=== PATIENT | female | born 1945 | race Caucasian/White ===

== ENCOUNTER 2022-02-23 13:24 | Emergency (ER) | payer OTHER, MEDICAID ==
[~2022-02-23] VITALS: Ht 160 cm; Wt 72.6 kg
[2022-02-23 13:50] VITALS: BP_SYST 102
[2022-02-23] MEDS ORDERED: LIDOCAINE 1% 10 MG/ML, 20 ML MDV INJ ONE (14:15)
[2022-02-23] MEDS ORDERED: DIPHTH,PERTUSS(ACELL),TET VAC 0.5 ML VIAL (Tdap) I.M. ONE (14:15)
--- NOTE | 2022-02-23 14:45 | NUR ---
PATIENT ARRIVED VIA AMBULANCE ON THE GURNEY FROM [facility]. COMPLAINTS OF UPPER LIP LACERATION. VSS
[2022-02-23] MEDS ORDERED: BACITRACIN 1 GM OINT TP ONE (14:59)
[2022-02-23 15:06] VITALS: BP_SYST 135
--- NOTE | 2022-02-23 15:10 | NUR ---
1440 DR HENDRICKS AT BEDSIDE, PATIENT ON [facility] 1445 DR HENDRICKS PLACED 2 SUTURES TO PATIENTS UPPER LIP, PATIENT TOLERATED PROCEDURE WELL, BANDAID WAS PLACED
--- NOTE | 2022-02-23 15:13 | NUR ---
1500 PATIENT DISCHARGED BACK TO [facility] 1503 D/C INSTRUCTIONS GIVEN TO PATIENT AND PAPERS GIVEN TO AMBULANCE 1510 PATIENT LEFT BACK TO [facility], VIA GURNEY, WITH [facility]. THIS IS THE SAME TEAM THAT BROUGHT THE PATIENT. VSS, NO IV, NO ISSUES, NO COMPLAINTS OF PAIN.
--- NOTE | 2022-02-23 15:15 | NUR ---
NO PRESCRIPTIONS GIVEN
== END 2022-02-23 15:00 | disposition home or self-care (01) ==
LOC: SED 13:24
DX: S01.511A Laceration without foreign body of lip, initial encounter (principal); I10 Essential (primary) hypertension; E11.9 Type 2 diabetes mellitus without complications; X58.XXXA Exposure to other specified factors, initial encounter; Y93.89 Activity, other specified; Y92.89 Other specified places as the place of occurrence of the external cause; Y99.8 Other external cause status
CPT/HCPCS: 99283

== ENCOUNTER 2022-03-08 17:50 | Inpatient (IN) | payer OTHER, MEDICAID ==
[~2022-03-08] VITALS: Ht 149.9 cm; Wt 5.0 kg
[2022-03-08 18:03] VITALS: BP_SYST 100
[2022-03-08] MEDS ORDERED: NACL 0.9% 1,000 ML IV ONE (18:15)
[2022-03-08] MEDS ORDERED: MORPHINE 4 MG INJ. 4 MG/ML VIAL IVP ONE (18:15)
[2022-03-08] MEDS ORDERED: KETOROLAC TROMETHAMINE 30 MG VIAL IVP ONE (18:15)
[2022-03-08 18:58] LABS: BASOPHILS # (AUTO) 0.1 K/uL (0.0-0.2); BASOPHILS % (AUTO) 0.5 % (0.0-2.0); EOSINOPHILS # (AUTO) 0.1 K/uL (0.0-0.4); EOSINOPHILS % (AUTO) 0.7 % (0.0-4.0); HEMATOCRIT 25.3 % (36-48); HEMOGLOBIN 8.6 g/dL (12.0-16.0); LYMPHOCYTES # (AUTO) 1.5 K/uL (1.0-5.5); LYMPHOCYTES % (AUTO) 10.5 % (20.5-51.5); MEAN CORPUSCULAR HEMOGLOBIN 30 pg (27-31); MEAN CORPUSCULAR HGB CONC 34 % (32-36); MEAN CORPUSCULAR VOLUME 87 fL (79.0-98.0); MONOCYTES # (AUTO) 0.7 K/uL (0.0-1.0); MONOCYTES % (AUTO) 5.1 % (1.7-9.3); NEUTROPHILS # (AUTO) 11.9 K/uL (1.8-7.7); NEUTROPHILS % (AUTO) 83.2 % (40.0-70.0); PLATELET COUNT (AUTO) 365 K/uL (130-430); RED BLOOD CELL COUNT(AUTO) 2.91 MIL/uL (4.2-6.2); RED CELL DISTRIBUTION WIDTH 13.4 % (9.0-15.0); WHITE BLOOD COUNT (AUTO) 14.3 K/uL (4.8-10.8)
[2022-03-08 19:56] LABS: ANION GAP 10 (5-15); CALCIUM 8.7 mg/dL (8.4-11.0); CHLORIDE 102 mmol/L (98-107); CREATININE 2.58 mg/dL (0.55-1.30); GLUCOSE 198 mg/dL (70-99); UREA NITROGEN, BLOOD 38 mg/dL (8-21)
[2022-03-08] MEDS ORDERED: HYDROmorphone 1 MG/ML INJ. CARTRIDGE IVP ONE (20:00)
[2022-03-08 20:01] LABS: ALANINE AMINOTRANSFERASE 14 U/L (12-78); ALBUMIN 3.5 g/dL (3.4-4.8); ASPARTATE AMINOTRANSFERASE 10 U/L (10-37); TOTAL BILIRUBIN 0.3 mg/dL (0.0-1.0)
[2022-03-08] MEDS ORDERED: INSULIN ASPART 100 UNITS/ML, 10 ML VIAL (NovoLOG) SUBCUT PRN (21:00)
[2022-03-08] MEDS ORDERED: 0.45% NACL 1,000 ML IV ONE (21:00)
[2022-03-08 22:03] LABS: BILIRUBIN,URINE NEGATIVE (NEGATIVE); BLOOD, URINE 2+ (NEGATIVE); CLARITY/URINE CLOUDY (CLEAR); COLOR,URINE RED (YELLOW); GLUCOSE,URINE 1+ (NEGATIVE); KETONES,URINE NEGATIVE (NEGATIVE); LEUKOCYTE ESTERASE ,URINE NEGATIVE (NEGATIVE); NITRITE, URINE NEGATIVE (NEGATIVE); PROTEIN URINE 3+ (NEGATIVE); UROBILINOGEN,URINE 0.2 (0.2-1.0)
[2022-03-08 22:26] LABS: URINE SULFO SALICYLIC ACID NEGATIVE (NEGATIVE)
[2022-03-08 22:27] LABS: BACTERIA,URINE MODERATE /HPF (None Seen); MUCUS,URINE None Seen /LPF (None Seen)
[2022-03-09] MEDS ORDERED: NACL 0.9% 1,000 ML IV SCH (10:00)
[2022-03-09] MEDS ORDERED: NACL 0.9% 250 ML IV ONE (10:45)
[2022-03-09 11:00] VITALS: BP_SYST 90
[2022-03-09 13:18] LABS: ANION GAP 13 (5-15); CALCIUM 7.5 mg/dL (8.4-11.0); CHLORIDE 107 mmol/L (98-107); GLUCOSE 133 mg/dL (70-99); UREA NITROGEN, BLOOD 40 mg/dL (8-21)
[2022-03-09 16:10] VITALS: BP_SYST 96
[2022-03-09] MEDS ORDERED: HYDROmorphone 2 MG/ML VIAL IVP PRN (16:15)
[2022-03-09] MEDS ORDERED: NALOXONE HCL 2 MG/2 ML SYR ONE (17:30)
[2022-03-09] MEDS ORDERED: NALOXONE HCL 2 MG/2 ML SYR IVP ONE (17:45)
[2022-03-09 18:10] VITALS: BP_SYST 117
[2022-03-09 20:34] VITALS: BP_SYST 115
[2022-03-10] MEDS ORDERED: NALOXONE HCL 2 MG/2 ML SYR ONE (00:43)
[2022-03-10 01:24] VITALS: BP_SYST 80
[2022-03-10] MEDS ORDERED: EPINEPHrine JECT 0.1 MG/ML SYR IVP ONE (07:03)
[2022-03-10] MEDS ORDERED: NALOXONE HCL 0.4 MG/ML AMP (NARCAN) IVP ONE (07:03)
== END 2022-03-10 00:53 | DRG 699 ==
LOC: SED 17:50 → SMU 20:42 → STU 03-09 10:38
PROVIDERS: ADMIT Specialist; ATTEND Specialist
PROC: 0BH17EZ Insertion of Endotracheal Airway into Trachea, Via Natural or Artificial Opening (ICD-10-PCS; principal; 2022-03-10)
PROC: 5A12012 Performance of Cardiac Output, Single, Manual (ICD-10-PCS; 2022-03-10)
PROC: 0T9B70Z Drainage of Bladder with Drainage Device, Via Natural or Artificial Opening (ICD-10-PCS; 2022-03-10)
DX: N31.9 Neuromuscular dysfunction of bladder, unspecified (principal); R65.10 Systemic inflammatory response syndrome (SIRS) of non-infectious origin without acute organ dysfunction; N13.9 Obstructive and reflux uropathy, unspecified; T40.2X1A Poisoning by other opioids, accidental (unintentional), initial encounter; E78.5 Hyperlipidemia, unspecified; I10 Essential (primary) hypertension; Z20.822 Contact with and (suspected) exposure to COVID-19; Z87.442 Personal history of urinary calculi; I46.9 Cardiac arrest, cause unspecified; N18.9 Chronic kidney disease, unspecified
CPT/HCPCS: 36415; 76376; 80048; 80053; 81000; 82962; 83036; 85025; 87081; 92950; 96361; 96374; 96375; 99285; G0378; J0171; J1170; J1885; J2270; J2310; J7030